=== PATIENT | female | born 1970 | race Caucasian/White ===

== ENCOUNTER 2017-01-30 22:27 | Emergency (ER) | payer MEDICAID ==
[~2017-01-30] VITALS: Ht 152.4 cm; Wt 65.8 kg
[~2017-01-30 22:27] MED LIST: FERR325E14 PO; PREN-385 PO
[2017-01-30 22:30] VITALS: BP 126/78
--- NOTE | 2017-01-30 22:41 | NUR ---
SENT BACK TO [facility], IN STABLE CONDITION, MEDICATED TOLERATED WELL, ERMD NOTED.
--- NOTE | 2017-01-30 22:49 | NUR ---
SENT FOR XRAY VIA W/C WITH THE [employer].
[2017-01-30] MEDS ORDERED: ACETAMINOPHEN EXTRA STRENGTH 500 MG TAB ONE (22:53)
--- NOTE | 2017-01-31 02:50 | NUR ---
46/F c/o cough, body aches and fever for the past 4 days. Pt c/o 8/10 generalized body pain. Pt states she took Motrin prior to arrival which improved her pain. Lungs are clear bilaterally. VSS. No distress noted.
[2017-01-31] MEDS: PENICILLIN G BENZATHINE L-A 0.6 MU/ML SYR IM ONE (03:11)
[2017-01-31] MEDS: KETOROLAC 60 MG/2 ML VIAL IM ONE (03:11)
[2017-01-31 04:15] VITALS: BP 120/82
--- NOTE | 2017-01-31 04:15 | NUR ---
Patient discharged with v/s stable. Written and verbal after care instructions given and explained. Patient alert, oriented and verbalized understanding of instructions. Ambulatory with steady gait. All questions addressed prior to discharge. ID band removed. Patient advised to follow up with PMD. Rx of MOTRIN 600MG, PREDNISONE AND CIPRO 500MG given. Patient educated on indication of medication including possible reaction and side effects. Opportunity to ask questions provided and answered.
== END 2017-01-31 04:15 | disposition home or self-care (01) ==
LOC: MED 22:27
DX: N39.0 Urinary tract infection, site not specified (principal); J02.9 Acute pharyngitis, unspecified; Z79.899 Other long term (current) drug therapy
CPT/HCPCS: 71020; 81002; 81025; 96372; 99284; J0561; J1885; J7030

== ENCOUNTER 2018-02-13 18:40 | Emergency (ER) | payer MEDICAID ==
[~2018-02-13] VITALS: Ht 162.6 cm; Wt 72.6 kg
[2018-02-13 18:44] VITALS: BP 149/57
--- NOTE | 2018-02-13 18:49 | NUR ---
PT AMBULATES TO BED 6
--- NOTE | 2018-02-13 18:50 | NUR ---
47 yo f bib self w/ c/o urinary discomfort "hot", bl flank pain and abd bloating x 1 week. pt states feeling feverish at nights, denies fever. no fever present at this time. pt reports taking advil for the discomfort. VSS; PATIENT POSITIONED FOR COMFORT; HOB ELEVATED; BEDRAILS UP X1; BED DOWN. ER MD MADE AWARE OF PT STATUS.
--- NOTE | 2018-02-13 19:10 | NUR ---
DR MCCAIN AT BEDSIDE EVALUATING PT.
[2018-02-13] MEDS ORDERED: KETOROLAC 30 MG/ML VIAL IM ONE (19:15)
--- NOTE | 2018-02-13 19:15 | NUR ---
ASSUMED CARE OF PT AT THIS TIME, PT SITTING IN BED , WILL CONTINUE TO MONITOR.
[2018-02-13 19:33] LABS: APPEARANCE,URINE HAZY (CLEAR); BILIRUBIN,URINE NEGATIVE (NEGATIVE); BLOOD, URINE 2+ (NEGATIVE); COLOR,URINE YELLOW (YELLOW); LEUKOCYTE ESTERASE ,URINE NEGATIVE (NEGATIVE); NITRITE, URINE NEGATIVE (NEGATIVE); RBC,URINE 11-20 (MOD) /HPF (0-5); UGLUCOSE NEGATIVE (NEGATIVE); WBC,URINE 0-5 (RARE) /HPF (0-5)
--- NOTE | 2018-02-13 20:10 | NUR ---
PT TO X-RAY AT THIS TIME VIA WHEELCHAIR BY [facility].
--- NOTE | 2018-02-13 21:07 | NUR ---
LAB AT BEDSIDE FOR DRAW
[2018-02-13 21:18] LABS: BASOPHILS # (AUTO) 0.1 K/uL (0.00-0.22); BASOPHILS % (AUTO) 1.5 % (0.0-2.0); HEMATOCRIT 42.5 % (36-48); HEMOGLOBIN 14.1 g/dL (12.0-16.0); LYMPHOCYTES % (AUTO) 39.2 % (20.5-51.1); MEAN CORPUSCULAR HEMOGLOBIN 30 pg (27-31); MEAN CORPUSCULAR HGB CONC 33 g/dL (33-37); MEAN CORPUSCULAR VOLUME 89.6 fL (80-94); MONOCYTES # (AUTO) 0.4 K/uL (0.8-1.0); MONOCYTES % (AUTO) 7.3 % (1.7-9.3); NEUTROPHILS # (AUTO) 2.6 K/uL (1.8-7.7); PLATELET COUNT (AUTO) 316 K/uL (140-450); RED BLOOD CELL COUNT(AUTO) 4.75 MIL/uL (4.20-5.40); RED CELL DISTRIBUTION WIDTH 12.8 % (11.6-13.7); WHITE BLOOD COUNT (AUTO) 5.1 K/uL (4.8-10.8)
[2018-02-13 21:24] LABS: ANION GAP 14.2 (8-16); CARBON DIOXIDE 27.4 mmol/L (21-32); CREATININE 0.7 mg/dL (0.6-1.3); POTASSIUM 3.6 mmol/L (3.5-5.1)
[2018-02-13 21:32] LABS: TOTAL BILIRUBIN 0.3 mg/dL (0.0-1.0)
[2018-02-13 22:48] VITALS: BP 155/91
--- NOTE | 2018-02-13 22:48 | NUR ---
Patient discharged with v/s stable. Written and verbal after care instructions given and explained. Patient alert, oriented and verbalized understanding of instructions. Ambulatory with steady gait. All questions addressed prior to discharge. ID band removed. Patient advised to follow up with PMD. Rx of Macrobid, Bentyl, and MiraLax Powder given. Patient educated on indication of medication including possible reaction and side effects. Opportunity to ask questions provided and answered.
== END 2018-02-13 22:49 | disposition home or self-care (01) ==
LOC: MED 18:40
DX: N39.0 Urinary tract infection, site not specified (principal)
CPT/HCPCS: 36415; 74018; 74176; 80053; 81001; 81002; 81025; 83690; 85025; 96372; 99284; J1885